=== PATIENT | female | born 1940 | race Caucasian/White ===

== ENCOUNTER 2021-04-08 14:13 | Emergency (ER) | payer OTHER ==
[~2021-04-08] VITALS: Ht 154.9 cm; Wt 67.7 kg
[~2021-04-08 14:13] MED LIST: FLUO20CA36 PO; HYDR12.54 PO; NITR0.4T50 SL; OLME40TA8 PO; TRAZ-184 PO
[2021-04-08] MEDS ORDERED: FAMOTIDINE 10 MG/ML 2 ML VIAL IVP ONE (15:00)
[2021-04-08] MEDS ORDERED: SODIUM CHLORIDE 0.9% 1,000 ML IV ONE (15:00)
[2021-04-08] MEDS ORDERED: ACETAMINOPHEN 500 MG TABLET PO ONE (15:00)
[2021-04-08] MEDS ORDERED: MAG HYDROX/AL HYDROX/SIMETH ES 30 ML SUSPENSION UDCUP PO ONE (15:00)
[2021-04-08 15:29] LABS: COVID AG,FIA SOURCE NASOPHARYNGEAL
[2021-04-08 15:40] LABS: BASOPHILS % (AUTO) 0.7 % (0.0-2.0); EOSINOPHILS % (AUTO) 0.4 % (1.0-6.0); HEMOGLOBIN 18.1 g/dL (12.0-16.0); LYMPHOCYTES # (AUTO) 0.6 K/uL (1.0-4.8); LYMPHOCYTES % (AUTO) 5.3 % (22.0-44.0); MEAN CORPUSCULAR HEMOGLOBIN 32.2 pg (26.0-34.0); MEAN CORPUSCULAR HGB CONC 32.5 G/dL (31.0-37.0); MEAN CORPUSCULAR VOLUME 99 fL (80-100); MONOCYTES # (AUTO) 1.3 K/uL (0.1-1.0); MONOCYTES % (AUTO) 10.9 % (2.0-9.0); NEUTROPHILS # (AUTO) 10.1 K/uL (1.8-7.7); NEUTROPHILS % (AUTO) 82.7 % (40.0-70.0); PLATELET COUNT (AUTO) 231 K/uL (150-450); RED CELL DISTRIBUTION WIDTH 13.8 % (11.5-14.5)
[2021-04-08 15:42] LABS: HEMATOCRIT 55.5 % (36-46)
[2021-04-08 15:50] LABS: ANION GAP 19 mmol/L (8-16); CALCIUM, TOTAL 9.6 mg/dL (8.8-10.5); CARBON DIOXIDE 18 mmol/L (22-29); CHLORIDE 109 mmol/L (98-107); GLUCOSE,RANDOM 118 mg/dL (70-110); POTASSIUM 4.9 mmol/L (3.5-5.1); SODIUM SERUM 146 mmol/L (136-145); UREA NITROGEN, BLOOD 21 mg/dL (7-18)
[2021-04-08 15:54] LABS: GLOMERULAR FILTR. RATE CALC > 60 mL/min (>60)
[2021-04-08 16:09] LABS: B-TYPE NATRIURETIC PEPTIDE 268 pg/mL (0-100)
[2021-04-08 16:16] LABS: ALANINE AMINOTRANSFERASE 36 U/L (12-78); ALBUMIN 3.5 g/dL (3.4-5.0); ALKALINE PHOSPHATASE 59 U/L (46-116); ASPARTATE AMINOTRANSFERASE 77 U/L (15-37); LIPASE 104 U/L (73-393); TOTAL PROTEIN, SERUM 7.9 g/dL (6.4-8.2)
[2021-04-08] MEDS ORDERED: AmLODIPine BESYLATE 10 MG TABLET PO SCH (17:00)
[2021-04-08] MEDS ORDERED: MAGNESIUM OXIDE 400 MG TABLET PO ONE (17:00)
[2021-04-08] MEDS ORDERED: ACETAMINOPHEN 325 MG TABLET PO PRN (17:00)
[2021-04-08] MEDS ORDERED: CloNIDine HCL 0.1 MG TABLET PO PRN (17:00)
[2021-04-08 17:08] LABS: LACTIC ACID 1.3 mmol/L (0.4-2.0)
[2021-04-08] MEDS ORDERED: CLOPIDOGREL BISULFATE 75 MG TABLET PO SCH (17:15)
[2021-04-08 20:30] VITALS: BP 153/83
[2021-04-08] MEDS ORDERED: ATORVASTATIN CALCIUM 20 MG TABLET PO SCH (21:00)
[2021-04-08] MEDS ORDERED: DOCUSATE SODIUM 100 MG CAPSULE PO SCH (21:00)
[2021-04-09] MEDS ORDERED: HEPARIN SODIUM,PORCINE 5,000 UNITS/ML VIAL SQ SCH
[2021-04-09] MEDS ORDERED: FAMOTIDINE 20 MG TABLET PO SCH (09:00)
== END 2021-04-08 21:14 | disposition short-term general hospital (02) ==
LOC: EMS 14:13
DX: R55 Syncope and collapse (principal); R53.1 Weakness; R62.7 Adult failure to thrive; R29.6 Repeated falls; E86.0 Dehydration; E83.42 Hypomagnesemia; I11.9 Hypertensive heart disease without heart failure; Z20.822 Contact with and (suspected) exposure to COVID-19
CPT/HCPCS: 36415; 70450; 71045; 72125; 72170; 80053; 82550; 83605; 83690; 83735; 83880; 84484; 85025; 87426; 93005; 96360; 96361; 99285; G0480; J7030